=== PATIENT | male | born 1995 | race African-American/Black ===

== ENCOUNTER 2020-08-03 15:47 | Emergency (ER) | payer OTHER ==
[~2020-08-03] VITALS: Ht 175.3 cm; Wt 81.6 kg
[2020-08-03 15:47] VITALS: BP 120/73
[2020-08-03] MEDS ORDERED: CIPROFLOXACIN HCL 0.3% 5 ML BOTTLE RIGHTEYE STA (16:01)
[2020-08-03] MEDS ORDERED: IBUPROFEN 600 MG TABLET ONE (16:06)
--- NOTE | 2020-08-03 16:14 | NUR ---
PICKED UP BY DIRECTOR ADULT VIA [facility] FOR CT SCAN.
[2020-08-03] MEDS ORDERED: IBUPROFEN 600 MG TABLET PO ONE (16:30)
--- NOTE | 2020-08-03 16:52 | NUR ---
Patient discharged to [facility] in stable condition. Written and verbal after care instructions given TO PT/[employer] OFFICERS. PT/[facility] verbalizes understanding of instruction.
== END 2020-08-03 16:54 ==
LOC: ER 15:47
DX: S05.11XA Contusion of eyeball and orbital tissues, right eye, initial encounter (principal); F17.200 Nicotine dependence, unspecified, uncomplicated; Z60.2 Problems related to living alone; Y04.0XXA Assault by unarmed brawl or fight, initial encounter; Y93.89 Activity, other specified; Y92.89 Other specified places as the place of occurrence of the external cause; Y99.8 Other external cause status
CPT/HCPCS: 70486-TC